=== PATIENT | female | born 1945 | race Caucasian/White ===

== ENCOUNTER → 2018-09-07 | Outpatient (CLI) | payer MEDICARE, OTHER ==
[~2018-09-07] MED LIST: ACE3 PO; CHOL400T26 PO; CYAN100T31 PO; FOLATE PO; GLUC-180 PO; IBU200 PO; MULT-1 PO; OMEG-96 PO; PNEU0.5D3 IM; PYRI50TA88 PO; RISE150T PO; [UNRECOGNIZED DRUG - CODE] PO; [UNRECOGNIZED DRUG - CODE] PO; [UNRECOGNIZED DRUG - CODE] PO; [UNRECOGNIZED DRUG - OTHER] PO
--- NOTE | 2018-09-07 11:43 | RADIOLOGY IMAGING REPORT ---
FACILITY: [facility] PATIENT NAME: Rosalinda Cardona : 1945 MR: [id number] V: [id number] EXAM DATE: ORDERING PHYSICIAN: SLIM CHAU TECHNOLOGIST: Location: [facility] Patient: Rosalinda Cardona : 1945 Visit/Account:[id number] Date of Sevice: 09/07/2018 Exam type: RIGHT LOWER QUADRANT History: Right lower quadrant tubular structure felt by patient Comparison: Pelvic ultrasound performed today. Findings: Numerous images of the right lower quadrant demonstrate no evidence of an inguinal hernia. Appendix was not visualized.. Incidentally noted were numerous cysts within the liver ranging in size up to 2 .25 cm IMPRESSION: 1. No demonstration of a right inguinal hernia. Appendix not visualized Multiple hepatic cysts identified ranging in size up to 2.25 cm Report Dictated By: Jaquelin Saenz MD at 09/07/2018 11:35 AM Report E-Signed By: Jaquelin Saenz MD at 09/07/2018 11:38 AM WSN:[email or web address]
--- NOTE | 2018-09-07 11:46 | RADIOLOGY IMAGING REPORT ---
FACILITY: [facility] PATIENT NAME: Rosalinda Cardona : 1945 MR: [id number] V: [id number] EXAM DATE: ORDERING PHYSICIAN: SLIM CHAU TECHNOLOGIST: Location: [facility] [place] Patient: Rosalinda Cardona : 1945 Visit/Account:[id number] Date of Sevice: 09/07/2018 TRANSVAGINAL NON-OB HISTORY: Right lower quadrant tubular structure felt by patient TECHNIQUE: Transvaginal ultrasound pelvis. COMPARISON: Right lower quadrant ultrasound performed today FINDINGS: Uterus: ; 4.1 cm length x 2 cm AP x 4.4 cm transverse. Myometrium: With peripheral calcifications are present. Endometrium: Unremarkable; double thickness 1.6 mm. Cervix: Grossly negative. Ovaries: Right - 1.2 x 1.5 x 0.9 cm Left - 2.1 x 2 x 1.3 cm. There are two left ovarian cysts range in size up to 1.4 cm There is diminished blood flow to both ovaries which appear atrophic Adnexa: Prominent adnexal veins are present. Free pelvic fluid: None. IMPRESSION: Atrophic uterus and ovaries. There are peripheral calcifications within the uterus There are two left ovarian cysts ranging in size up to 1.4 cm There are prominent adnexal veins Report Dictated By: Jaquelin Saenz MD at 09/07/2018 11:38 AM Report E-Signed By: Jaquelin Saenz MD at 09/07/2018 11:41 AM WSN:[email or web address]
== END ==
LOC: US 01:02
PROVIDERS: ATTEND Physician Assistant
DX: Z12.31 Encounter for screening mammogram for malignant neoplasm of breast (principal); R10.813 Right lower quadrant abdominal tenderness
CPT/HCPCS: 76705; 76830

== ENCOUNTER → 2018-10-06 | Outpatient (CLI) | payer MEDICARE, OTHER ==
--- NOTE | 2018-10-09 13:48 | RADIOLOGY IMAGING REPORT ---
FACILITY: [facility] PATIENT NAME: MARCO MARQUES : [id number] MR: [id number] V: [id number] EXAM DATE: ORDERING PHYSICIAN: SLIM CHAU TECHNOLOGIST: Naomy Camara PROCEDURE: BILATERAL DIGITAL SCREENING MAMMOGRAM WITH CAD ASSISTED INTERPRETATION & 3D TOMOSYNTHESIS REASON FOR STUDY: Screening. COMPARISON: 09/01/2016. VIEWS OBTAINED: 2D & 3D full field CC & MLO. BREAST DENSITY: The breasts are heterogeneously dense which can obscure small masses. MAMMOGRAM FINDINGS: There is no suspicious mass, calcification, or architectural distortion. Vascular calcifications in the Right breast are unchanged. IMPRESSION: BIRADS 2: Benign finding. DIAGNOSTIC CATEGORY 2--BENIGN FINDING. RECOMMENDATIONS: ROUTINE MAMMOGRAM AND CLINICAL EVALUATION. Dictated by: Law Arias M.D. on 10/09/2018 at 8:48 Transcribed by: SANDRA on 10/09/2018 at 9:48 Approved by: Law Arias M.D. on 10/09/2018 at 13:46 [facility]
== END ==
LOC: MAMO 01:42
PROVIDERS: ATTEND Physician Assistant
DX: Z12.31 Encounter for screening mammogram for malignant neoplasm of breast (principal); Z80.3 Family history of malignant neoplasm of breast
CPT/HCPCS: 77063; 77067

== ENCOUNTER → 2018-11-16 | Outpatient (CLI) | payer MEDICARE, OTHER ==
--- NOTE | 2018-11-16 14:29 | RADIOLOGY IMAGING REPORT ---
FACILITY: [facility] PATIENT NAME: Rosalinda Cardona : 1945 MR: [id number] V: [id number] EXAM DATE: ORDERING PHYSICIAN: SLIM CHAU TECHNOLOGIST: Location: [facility] [place] Patient: Rosalinda Cardona : 1945 Visit/Account:[id number] Date of Sevice: 11/16/2018 TRANSVAGINAL NON-OB HISTORY: 6-8 week follow-up TECHNIQUE: Transvaginal ultrasound pelvis. COMPARISON: September 07, 2018 FINDINGS: Uterus: ; 5.5 cm length x 2.3 cm AP x 3.2 cm transverse. Myometrium: Peripheral calcifications. Endometrium: Unremarkable; double thickness 2.3 mm. Cervix: Nabothian cysts. Ovaries: Right - 1.4 x 1.4 x 1.8 cm Left - 2 x 2 x 1.4 cm. There are two simple left ovarian cysts, one measuring 1.2 cm in diamete r and one measuring 1.47 cm in diameter Blood flow is documented in each ovary by duplex Doppler ultrasound. Adnexa: Prominent adnexal vessels again seen. Free pelvic fluid: None. IMPRESSION: There are two simple left ovarian cysts measuring up to 1.47 cm in diameter that are essentially unch anged in size Prominent adnexal vessels again seen Report Dictated By: Jaquelin Saenz MD at 11/16/2018 2:15 PM Report E-Signed By: Jaquelin Saenz MD at 11/16/2018 2:21 PM WSN:[email or web address]
== END ==
LOC: US 00:44
PROVIDERS: ATTEND Physician Assistant
DX: N83.202 Unspecified ovarian cyst, left side (principal)
CPT/HCPCS: 76830